=== PATIENT | female | born 1960 | race Caucasian/White ===

== ENCOUNTER → 2018-04-09 | Outpatient (CLI) | payer BC ==
[~2018-04-09] MED LIST: HYDR-3583 PO; LEVO750T24 PO; METR500T PO
--- NOTE | 2018-04-09 10:15 | Diagnostic Imaging Report ---
EXAMINATION: Left fourth finger, two views. Left hand, single view. COMPARISON: None. HISTORY: 57-year-old female, left ring finger swelling for one year. FINDINGS: There is no identified acute fracture or dislocation. There is no radiopaque foreign body. There is no visible soft tissue swelling appreciated radiographically. The joint spaces are well preserved. There is unremarkable bone mineralization and alignment. There is no bone erosion. There is no periosteal reaction. IMPRESSION: Unremarkable radiographs of the left hand and additional provided views of the left fourth finger. Dictated by: Dictated on workstation # [id number]
== END ==
LOC: RAD 09:14
PROVIDERS: ATTEND Nurse Practitioner Family
DX: M79.89 Other specified soft tissue disorders (principal)
CPT/HCPCS: 73140